=== PATIENT | female | born 1980 | race African-American/Black ===

== ENCOUNTER 2022-07-26 14:12 | Emergency (ER) | payer OTHER ==
[~2022-07-26] VITALS: Ht 172.7 cm; Wt 102.1 kg
== END 2022-07-26 15:08 | disposition home or self-care (01) ==
LOC: ER 14:18
DX: N64.4 Mastodynia (principal); N63.10 Unspecified lump in the right breast, unspecified quadrant; I10 Essential (primary) hypertension
CPT/HCPCS: 99283

== ENCOUNTER 2022-07-26 15:37 | Emergency (ER) | payer OTHER ==
[~2022-07-26] VITALS: Ht 172.7 cm; Wt 102.1 kg
== END 2022-07-26 17:41 | disposition short-term general hospital (02) ==
LOC: FSED 16:22
DX: N64.4 Mastodynia (principal)